=== PATIENT | male | born 1975 | race Caucasian/White ===

== ENCOUNTER 2017-12-03 12:01 | Emergency (ER) | payer SELFPAY ==
[2017-12-03 12:44] VITALS: BP 127/85
--- NOTE | 2017-12-03 12:57 | UC ---
Respiratory Complaint HPI - HPI Summary HPI Summary: 42 y/o male presents to the urgent care c/o productive cough w/ low grade fever for the past 3 weeks. Pt reports symptoms started w/ the flu for 1 week, then cough has been persistent, now producing streaks of blood and yellowish. Low grade fever, body aches, fatigue and chills on and off. He also still has nasal congestion and sore throat. Pt has been taking oTC medication, Robitussin PO to alleviate symptoms. Pt denies SOB, chest pain, abdominal pain, N/V/D - History of Current Complaint Chief Complaint: UCRespiratory Stated Complaint: COUGH CONGESTION Time Seen by Provider: 12/03/17 12:55 Hx Obtained From: Patient Onset/Duration: Gradual Onset, Lasting Weeks - 3 weeks, Still Present, Worse Since - 2 days ago Timing: Intermittent Episodes Severity Initially: Mild Severity Currently: Moderate Pain Intensity: 2 - sore throat Pain Scale Used: 0-10 Numeric Character: Cough: Productive, Sputum Description: - yellwosih w/ streaks of blood Aggravating Factors: Recumbent Position Alleviating Factors: OTC Meds Associated Signs And Symptoms: Positive: Fever, Chills, URI, Nasal Congestion, Sinus Discomfort - Risk Factors Pulmonary Embolism Risk Factors: Negative Cardiac Risk Factors: Negative Pseudomonas Risk Factors: Negative Tuberculosis Risk Factors: Negative - Allergies/Home Medications Allergies/Adverse Reactions: Allergies Allergy/AdvReac Type Severity Reaction Status Date / Time No Known Allergies Allergy Verified 12/03/17 12:37 Home Medications: Home Medications GuaiFENesin DM* [Robitussin DM*] 5 ml PO Q6H PRN 12/03/17 [History Confirmed 09/10] PMH/Surg Hx/FS Hx/Imm Hx Previously Healthy: Yes Respiratory History: Bronchitis - Surgical History Surgical History: Yes Surgery Procedure, Year, and Place: hernia age 2. hip replacement 2016 - Family History Known Family History: Positive: Cardiac Disease, Diabetes - Social History Occupation: Employed Full-time Lives: With Family Alcohol Use: Occasionally Substance Use Type: None Smoking Status (MU): Current Some Day Smoker Type: Cigarettes Amount Used/How Often: less than 1 pack per week Review of Systems Constitutional: Fever, Chills, Fatigue, Other - body aches Skin: Negative Eyes: Negative ENT: Sore Throat, Nasal Discharge, Sinus Congestion Respiratory: Cough, Other Cardiovascular: Negative Gastrointestinal: Negative Genitourinary: Negative Motor: Negative Neurovascular: Negative Musculoskeletal: Negative Neurological: Negative Psychological: Negative Is Patient Immunocompromised?: No All Other Systems Reviewed And Are Negative: Yes Physical Exam - Summary Physical Exam Summary: Vital Signs Reviewed: Yes General: well developed, well nourished male sitting in the examining table w/o any apparent distress Eyes: Positive: Conjunctiva Clear - PERRLA, EOMI, fundi grossly normal ENT: Positive: Normal ENT inspection, Hearing grossly normal, Pharynx normal, Nasal congestion - edematous and erythematous nasal mucosa, Nasal drainage - yellowish drainage, TMs normal. Negative: Tonsillar swelling, Tonsillar exudate Neck: Positive: Supple, Nontender, No Lymphadenopathy Respiratory: no orthopnea or dyspnea. Able to speak in full sentences, no retractions or accessory muscle use, no tripod position, stridor, or head bobbing. Positive breath sounds. B/L upper posterior lungs w/ scattered rhonchi , no wheezing , crackles or rales. Cardiovascular: Positive: RRR, No Murmur, Pulses Normal, Brisk Capillary Refill Abdomen Description: Positive: Nontender, No Organomegaly, Soft. Negative: CVA Tenderness (R), CVA Tenderness (L) Bowel Sounds: Positive: Present Musculoskeletal Exam: Normal Musculoskeletal: Positive: Strength Intact, ROM Intact, No Edema Neurological Exam: Normal Psychological Exam: Normal Skin Exam: Normal Triage Information Reviewed: Yes Vital Signs: Initial Vital Signs Temp 98.8 F 12/03/17 12:36 Pulse 93 12/03/17 12:36 Resp 18 12/03/17 12:36 BP 127/85 12/03/17 12:36 Pulse Ox 98 12/03/17 12:36 Diagnostic Evaluation - Laboratory O2 Sat by Pulse Oximetry: 98 Respiratory Course/Dx - Course Course Of Treatment: 42 y/o male presents to the urgent care c/o productive cough w/ low grade fever for the past 3 weeks. Pt reports symptoms started w/ the flu for 1 week, then cough has been persistent, now producing streaks of blood and yellowish. Low grade fever, body aches, fatigue and chills on and off. He also still has nasal congestion and sore throat. Pt has been taking OTC medication, Robitussin PO to alleviate symptoms. Pt denies SOB, chest pain, abdominal pain, N/V/D. Hx obtained. Pt w/ B/L posterior upper lungs w/ scattered rhonchi on examiantion, O2sat: 98%. Chest x-ray ordered to r/o pneumonia, Imression:No acute cardiopulmonary disease observed as perradiology. Pt with Acute bronchitis on examination. Pt Rx Z-boubacar PO and Tessalon tabs PO to alleviate cough. Pt advised to increase fluid intake and eat well. if not improvement or worsening of symptoms to return to the urgent care or f/u with PCP for further management. Pt understood and agreed with plan of care. - Differential Dx/Diagnosis Differential Diagnosis/HQI/PQRI: Bronchitis, Influenza, Lower Resp Infection, Sinusitis, Other - pneumonia Provider Diagnoses: 1- Acute bronchitis. 2-Cough Discharge - Discharge Plan Condition: Stable Disposition: HOME Prescriptions: Azithromyxin BOUBACAR (NF) [Z-Boubacar (Zithromax) 250 mg tabs #6] 2 tab PO .TODAY, THEN 1 DAILY #6 tab Benzonatate CAP* [Tessalon 100 MG CAP*] 100 mg PO TID PRN #21 cap PRN Reason: Cough Patient Education Materials: Acute Bronchitis (ED) Referrals: Avel Dewey MD [Primary Care Provider] - 3 Days Additional Instructions: 1-Please take full course of antibiotic to avoid resistance. 2-Take Tessalon PO tabs as directed to alleviate cough. Increase fluid intake, rest and eat well. 3- If symptoms do not improve or worsen or your develop SOB with fever and severe wheezing please go immediately to the ER further evaluation and treatment. 4- F/u with your PCP in 3 days if symptoms are not improving for further management.
--- NOTE | 2017-12-03 13:43 | RAD ---
INDICATION: Productive cough and fever. COMPARISON: There are no prior studies available for comparison. TECHNIQUE: Dual-energy PA and lateral views of the chest were obtained. FINDINGS: The heart is within normal limits in size. Mediastinal and hilar contours appear within normal limits. The lungs are clear. No pleural effusion is present. IMPRESSION: NO EVIDENCE FOR ACTIVE CARDIOPULMONARY DISEASE.
== END 2017-12-03 14:02 | disposition home or self-care (01) ==
LOC: UCEAST 12:01
DX: J20.9 Acute bronchitis, unspecified (principal); R05 Cough; Z96.649 Presence of unspecified artificial hip joint; Z72.0 Tobacco use
CPT/HCPCS: 71046; 99212; G0463